=== PATIENT | female | born 1965 | race American Indian/Alaskan Native ===

== ENCOUNTER 2018-12-15 12:20 | Emergency (ER) | payer BC, OTHER ==
[~2018-12-15] VITALS: Ht 165.1 cm; Wt 82.5 kg
--- OUTSIDE RECORDS SUMMARY | ~2018-12-15 | XMS | Clinical Summary ---
Demographics + + + | Address | [address] | | | [place] [address] | + + + | Home Phone | | + + + | Preferred Language | Unknown | + + + | Marital Status | Single | + + + | Adventist Affiliation | Unknown | + + + | Race | Unknown | + + + | Ethnic Group | Unknown | + + + Author + + + | Author | [facility] | | | and Abad | + + + | Organization | [facility] | | | and [place] | + + + | Address | Unknown | + + + | Phone | Unavailable | + + + Support + + + + + | Name | Relationship | Address | Phone | + + + + + | Radha Varma | ECON | [id number] | | | | | [place] | | | | | [address] | | + + + + + | Radha Varma | ECON | [id number] | | | | | [place] | | | | | [address] | | + + + + + | Radha Varma | ECON | [id number] | | | | | [place] | | | | | [address] | | + + + + + Care Team Providers + +------+ + | Care Revival Clerk Name | Role | Phone | + +------+ + | Kailey Wall PA-C | PP | | + +------+ + Allergies No Known Allergies Medications + + + +---------+------+------+-------+ | Medication | Sig | Dispensed | Refills | Star | End | Statu | | | | | | t | Date | s | | | | | | Date | | | + + + +---------+------+------+-------+ | omeprazole | Take 20 mg by mouth | | 0 | | | Activ | | (PRILOSEC) 20 mg | every morning | | | | | e | | capsule | (before breakfast). | | | | | | + + + +---------+------+------+-------+ | | Take 25 mg by mouth | | 0 | | | Activ | | hydrochlorothiazide | Daily. | | | | | e | | 25 mg tablet | | | | | | | + + + +---------+------+------+-------+ | atenolol | Take 100 mg by mouth | | 0 | | | Activ | | (TENORMIN) 100 MG | Daily. | | | | | e | | tablet | | | | | | | + + + +---------+------+------+-------+ | ibuprofen (ADVIL, | Take 600 mg by mouth | | 0 | | | Activ | | MOTRIN) 200 mg | every 6 hours as | | | | | e | | tablet | needed for Pain. | | | | | | + + + +---------+------+------+-------+ Active Problems + + + | Problem | Noted Date | + + + | Conversion disorder | 06/02/2017 | + + + | Laryngopharyngeal reflux (LPR) | 06/02/2017 | + + + | Neck pain | 03/29/2017 | + + + | Obesity | 03/29/2017 | + + + | GERD (gastroesophageal reflux disease) | 03/29/2017 | + + + | Cough | 03/29/2017 | + + + | Hypertension | 03/29/2017 | + + + Family History + + + + + | Medical History | Relation | Name | Comments | + + + + + | Diabetes | Brother | | | + + + + + | Colon cancer | Father | Abel | | | | | Kojo Jr | | + + + + + | Diabetes | Father | Abel | | | | | Kojo Jr | | + + + + + | Arthritis | Mother | Italia | | | | | James | | + + + + + | Hypertension | Mother | [place]alia | | | | | James | | + + + + + | Alcohol abuse | Other | | Unknown relation | + + + + + | Stroke | Other | | Unknown relation | + + + + + | Diabetes | Sister | | | + + + + + | Ovarian cancer | Sister | | | + + + + + + + + + + | Relation | Name | Status | Comments | + + + + + | Brother | | Alive | | + + + + + | Brother | | | | + + + + + | Daughter | | Alive | | + + + + + | Father | Abel | | Colon Cancer | | | Kojo Wilson | (Age | | | | | 56) | | + + + + + | | [place] | Alive | | | | James | | | + + + + + | Other | | | | + + + + + | Other | | | | + + + + + | | Lyric | Alive | | | | Kojo | | | + + + + + | Sister | | Alive | | + + + + + | Sister | | | | + + + + + | Sister | | | | + + + + + Social History + +-------+ +--------+------+ | Tobacco Use | Types | Packs/Day | Years | Date | | | | | Used | | + +-------+ +--------+------+ | Never Smoker | | | | | + +-------+ +--------+------+ + +---+---+---+ | Smokeless Tobacco: | | | | | Never Used | | | | + +---+---+---+ + + +---------+ + | Alcohol Use | Drinks/We | oz/Week | Comments | | | ek | | | + + +---------+ + | No | 0 | 0.0 | | | | Standard | | | | | drinks or | | | | | | | | | | equivalen | | | | | t | | | + + +---------+ + + + + | Sex Assigned at | Date Recorded | | | | + + + | Not on file | | + + + + + + + | Job Start Date | Occupation | Industry | + + + + | Not on file | Not on file | Not on file | + + + + + + + + | Travel History | Travel Start | Travel End | + + + + + + | No recent travel history available. | + + Last Filed Vital Signs + + + + | Vital Sign | Reading | Time Taken | + + + + | Blood Pressure | 135/76 | 06/28/201551 PST | + + + + | Pulse | 53 | 03/29/20171443 PDT | + + + + | Temperature | - | - | + + + + | Respiratory Rate | 16 | 03/29/20171443 PDT | + + + + | Oxygen Saturation | 98% | 03/29/20171443 PDT | + + + + | Inhaled Oxygen | - | - | | Concentration | | | + + + + | Weight | 83 kg (183 lb) | 03/29/20171443 PDT | + + + + | Height | 165.1 cm (5' 5") | 03/29/20171443 PDT | + + + + | Body Mass Index | 30.45 | 03/29/20171443 PDT | + + + + Plan of Treatment + + + + + | Health Maintenance | Due Date | Last Done | Comments | + + + + + | Hepatitis C | | | | | Screening | 5 | | | + + + + + | Vaccine: | | | | | Dtap/Tdap/Td (1 - | 4 | | | | Tdap) | | | | + + + + + | Cervical Cancer | | | | | Screening (Pap) | 5 | | | + + + + + | Breast Cancer | | | | | Screening (Ages | 5 | | | | 50-74) | | | | + + + + + | Colorectal Cancer | | | | | Screening | 5 | | | | (Colonoscopy) | | | | + + + + + | Vaccine: Zoster (1 | | | | | of 2) | 5 | | | + + + + + | Vaccine: Influenza | | | | | (Season Ended) | 9 | | | + + + + + Results Not on filefrom Last 3 Months Insurance + +--------+ +--------+-------+---------+--------+ | Payer | Benefi | Subscriber | Effect | Phone | Address | Type | | | t Plan | ID | lori | | | | | | / | | Dates | | | | | | Group | | | | | | + +--------+ +--------+-------+---------+--------+ | BCBS | BCBS | [id number] | 08/23/19 | | | PPO | | | FEDERA | | 16-Pre | | | | | | L FEP | | sent | | | | + +--------+ +--------+-------+---------+--------+ | [employer] | IHS | [id number] | 08/23/19 | | | Indemn | | SERVICE | YELLOW | | 05-Pre | | | ity | | | HAWK | | sent | | | | + +--------+ +--------+-------+---------+--------+ + +--------+ +--------+ + + | Guarantor Name | Accoun | Relation to | Date | Phone | Billing Address | | | t Type | Patient | of | | | | | | | | | | + +--------+ +--------+ + + | Radha Varma | Person | Self [birth year] | [id number] | | | al/Fam | | 1965 | [phone] | [address] | | | [place] | | | [address] (Home) | [phone] | + +--------+ +--------+ + + Advance Directives Patient has advance care planning documents on file. For more information, please contact:[facility] [place] [address]
--- OUTSIDE RECORDS SUMMARY | ~2018-12-15 | XMS | Clinical Summary ---
Demographics + + + | Address | [address] | | | [place] [address] | + + + | Home Phone | | + + + | Preferred Language | Unknown | + + + | Marital Status | Single | + + + | Mandaen Affiliation | Unknown | + + + | Race | Unknown | + + + | Ethnic Group | Unknown | + + + Author + + + | Author | [facility] | | | and Abad | + + + | Organization | [facility] | | | and [place] | + + + | Address | Unknown | + + + | Phone | Unavailable | + + + Support + + + + + | Name | Relationship | Address | Phone | + + + + + | Radha Varma | ECON | [phone] | | | | | [place] | | | | | [address] | | + + + + + | Radha Varma | ECON | [phone] | | | | | [place] | | | | | [address] | | + + + + + | Radha Varma | ECON | [id number] | | | | | [place] | | | | | [phone] | | + + + + + Care Team Providers + +------+ + | Care Test Driver Name | Role | Phone | + [...] +--------+ +--------+-------+---------+--------+ | BCBS | BCBS | [id number] | 08/23/19 | | | PPO | | | FEDERA | | 16-Pre | | | | | | L FEP | | sent | | | | + +--------+ +--------+-------+---------+--------+ | [employer] | IHS | [id number] | 08/23/19 | | | Indemn | [...] Person | Self | [birth year] | [phone] | | | al/Fam | | 1965 | [phone] | [address] | | | [place] | | | [address] (Home) | [phone] | + +--------+ +--------+ + + Advance Directives Patient has advance care planning documents on file. For more information, please contact:[facility] [place] [address]
[~2018-12-15 12:20] MED LIST: ATENOLOL100 MG PO; CYCLOBENZAPRINE10 MG PO; HYDROCHLOROTHIA25 MG PO; OMEPRAZOLE20 MG PO; VITAMIN D2000 UNI1 PO
[2018-12-15] MEDS ORDERED: RANITIDINE HCL150 MG PO (12:41)
[2018-12-15] MEDS ORDERED: IBUPROFEN600 MG PO (12:44)
--- NOTE | 2018-12-18 08:04 | EKG ---
[facility] [address] [facility] [place], [place] [address] Signed Sinus bradycardia Otherwise normal ECG No previous ECGs available Confirmed by DERIC CASTELLANOS MD ([id number]) on 12/18/2018 8:03:50 AM Electronically Signed By: DERIC CASTELLANOS MD 12/18/18 0804 PATIENT NAME: SULTANA WALSH Electrocardiogram DATE OF : 65 PHYSICIAN: DERIC CASTELLANOS MD REPORT #: [id number] REPORT IS CONFIDENTIAL AND NOT TO BE RELEASED WITHOUT AUTHORIZATION
== END 2018-12-15 13:30 | disposition home or self-care (01) ==
LOC: ED 12:20
DX: S46.812A Strain of other muscles, fascia and tendons at shoulder and upper arm level, left arm, initial encounter (principal); I10 Essential (primary) hypertension; K21.9 Gastro-esophageal reflux disease without esophagitis; Z79.899 Other long term (current) drug therapy; X58.XXXA Exposure to other specified factors, initial encounter
CPT/HCPCS: 71045; 93005; 93010; 99283-25

== ENCOUNTER 2024-07-25 08:27 | Day surgery (SDC) | payer BC, OTHER ==
[~2024-07-25] VITALS: Ht 165.1 cm; Wt 80.9 kg
[~2024-07-25 08:27] MED LIST changes: +IBLOOD GLUCOSE TEST STRIP 1 EA TEST VI PRN; +IBUPROFEN600 MG PO; +LACTATED RINGER'S 1,000 ML IV SCH; +LIDOCAINE HCL 1% 5 ML SDV INJ ONE; +MIDAZOLAM HCL 5 MG/5 ML VIAL IV PRN; +RANITIDINE HCL150 MG PO; +fentaNYL citrate 100 MCG/2 ML VIAL IV PRN
[2024-07-25] MEDS ORDERED: MIDAZOLAM HCL 5 MG/5 ML VIAL ONE (08:39)
[2024-07-25] MEDS ORDERED: fentaNYL citrate 100 MCG/2 ML VIAL ONE (08:39)
[2024-07-25 08:46] VITALS: BP 122/68
[2024-07-25] MEDS ORDERED: AVAPRO150 MG PO (08:49)
[2024-07-25] MEDS ORDERED: TYLENOL325 MG PO (08:50)
[2024-07-25] MEDS ORDERED: LYRICA25 MG PO (08:51)
--- NOTE | 2024-07-25 10:22 | NUR ---
07/25/24 1022 Sheets,Awilda 1015 PT ARRIVED TO PACU ON 3L VIA NC, PT WAKES EASILY AND IS ENCOURAGED TO PASS GAS NEEDED. RESP EVEN AND UNLABORED. VSS.
--- NOTE | 2024-07-25 10:41 | OR ---
[facility] [address] [place], [place] [address] Signed DATE OF OPERATION: 07/25/2024 SURGEON: Eunice Brizuela MD PREOPERATIVE DIAGNOSES: 1. Father of colon cancer age 56. 2. Brother had a sigmoid resection for diverticular disease and may also have a history of colonic polyps. 3. Minimal diverticulosis. POSTOPERATIVE DIAGNOSIS: Minimal diverticulosis. PROCEDURE: Colonoscopy without biopsy. ESTIMATED BLOOD LOSS: None. INDICATIONS: Sultana is a 59-year-old female, asked to see me for followup colonoscopy. We know her father of colon cancer age 56. Her brother had a sigmoid resection for diverticular disease. She thinks maybe her brother also had colonic polyps removed. I helped her with a colonoscopy in 2016 at age of 50. She had minimal diverticulosis. She did well with 5 mg of Versed and 150 mcg of fentanyl. She has been on the five year plan. Her recent ultrasound of the abdomen was unremarkable other than two small gallstones. She currently has no lower GI complaints. In the office, I gave her a pamphlet on colonoscopy. We reviewed the nature of the test. There is risk including, but not limited to gas bloating, crampy abdominal pain, bleeding, perforation requiring surgery, and missed diagnosis. We also reviewed the written instructions for a bowel prep line by line. It is the same bowel prep she took before. She also understands the need for IV conscious sedation. She told me she would call her sister for a ride afterwards. She had expressed understanding and wished to proceed. DESCRIPTION OF PROCEDURE: Sultana was taken into our endoscopy suite and placed in the left lateral decubitus position. She was given 6 mg of Versed and 125 mcg of fentanyl to cover the case. A digital rectal exam was performed. This was unremarkable. There were no external hemorrhoids. She had good sphincter tone. There were no masses. The adult colonoscope was introduced and advanced all around into the cecum under direct visualization of the Electronically Signed By: EUNICE BRIZUELA MD 07/25/24 1041 PATIENT NAME: SULTANA WALSH OPERATIVE REPORT DATE OF : 65 REPORT #: [id number] PHYSICIAN: EUNICE BRIZUELA MD PCP: ANG MORALES MD REPORT IS CONFIDENTIAL AND NOT TO BE RELEASED WITHOUT AUTHORIZATION [facility] [address] [place], [place] [address] Signed camera without difficulty. She took a little extra sedation and abdominal compression to get up through the sigmoid and left colon. Her prep was quite excellent. We could easily see the appendiceal orifice and the ileocecal valve. The scope was then slowly withdrawn. She does have a few diverticula in the left and sigmoid colon. They are fairly small in size, few in number and scattered about. Once in the rectum, the scope had been retroflexed and she really has minimal if any internal hemorrhoid tissue columns. After this, the gas was suctioned out and the colonoscope removed. Sultana tolerated the procedure quite well. RECOMMENDATIONS: Sultana can return in 5 years for repeat colonoscopy given her father's history of colon cancer at age 56. Eunice Brizuela MD ALB/MODL /[id number] cc: MD Eunice Degroot MD Copies: ANG MORALES MD, ANDREW L MD ~ Electronically Signed By: EUNICE BRIZUELA MD 07/25/24 1041 PATIENT NAME: SULTANA WALSH OPERATIVE REPORT DATE OF : 65 REPORT #: [id number] PHYSICIAN: EUNICE BRIZUELA MD PCP: ANG MORALES MD REPORT IS CONFIDENTIAL AND NOT TO BE RELEASED WITHOUT AUTHORIZATION
[2024-07-25] MEDS ORDERED: ondansetron HCL 4 MG/2 ML VIAL IV ONE (11:00)
[2024-07-25 11:07] VITALS: BP 103/62
== END 2024-07-25 11:21 | disposition home or self-care (01) ==
LOC: DS 08:27
PROVIDERS: ATTEND Colon & Rectal Surgery
PROC: 0DJD8ZZ Inspection of Lower Intestinal Tract, Via Natural or Artificial Opening Endoscopic (ICD-10-PCS; principal; 2024-07-25 09:45)
DX: K57.30 Diverticulosis of large intestine without perforation or abscess without bleeding (principal); K64.8 Other hemorrhoids; I10 Essential (primary) hypertension; G62.9 Polyneuropathy, unspecified; Z79.899 Other long term (current) drug therapy; Z80.0 Family history of malignant neoplasm of digestive organs; Z83.719 Family history of colon polyps, unspecified
CPT/HCPCS: 99153; G0500; J2250; J2405; J3010; J7121